=== PATIENT | male | born 1940 | race Caucasian/White ===

== ENCOUNTER → 2016-10-17 | Outpatient (CLI) | payer OTHER | END | disposition home or self-care (01) | LOC: PCVCCLINIC 11:51 | PROVIDERS: ATTEND Internal Medicine | DX: I25.10 Atherosclerotic heart disease of native coronary artery without angina pectoris (principal); I25.5 Ischemic cardiomyopathy; I35.0 Nonrheumatic aortic (valve) stenosis; I65.23 Occlusion and stenosis of bilateral carotid arteries; I10 Essential (primary) hypertension; E78.2 Mixed hyperlipidemia; E78.5 Hyperlipidemia, unspecified; Z79.82 Long term (current) use of aspirin; Z79.899 Other long term (current) drug therapy; Z95.1 Presence of aortocoronary bypass graft; Z87.891 Personal history of nicotine dependence | CPT/HCPCS: 85610; 93005; G0463 ==

== ENCOUNTER → 2016-10-17 | Outpatient (CLI) | payer OTHER | END | disposition home or self-care (01) | LOC: PCVCIMAG 10:11 | PROVIDERS: ATTEND Internal Medicine | DX: I65.23 Occlusion and stenosis of bilateral carotid arteries (principal); I25.10 Atherosclerotic heart disease of native coronary artery without angina pectoris; I35.0 Nonrheumatic aortic (valve) stenosis; I10 Essential (primary) hypertension; E78.5 Hyperlipidemia, unspecified | CPT/HCPCS: 80061; 93005; 93880; G0463 ==

== ENCOUNTER → 2016-10-18 | Outpatient (CLI) | payer OTHER | END | disposition home or self-care (01) | LOC: PCVCIMAG 16:02 | PROVIDERS: ATTEND Internal Medicine | DX: I65.23 Occlusion and stenosis of bilateral carotid arteries (principal); I25.10 Atherosclerotic heart disease of native coronary artery without angina pectoris; I25.5 Ischemic cardiomyopathy; I35.0 Nonrheumatic aortic (valve) stenosis; I10 Essential (primary) hypertension; E78.5 Hyperlipidemia, unspecified | CPT/HCPCS: 80061; 93005; 93306; G0463 ==

== ENCOUNTER → 2017-04-18 | Outpatient (CLI) | payer OTHER ==
--- NOTE | 2017-04-18 12:32 | PCVCIMAG ---
APPROVED REPORT Study performed: 04/18/2017 10:36:00 EXAM: Comprehensive 2D, Doppler, and color-flow Echocardiogram Patient Location: Echo lab Status: routine BSA: 2.35 HR: 75 bpmBP: 118/80 mmHg Rhythm: NSR Other Information Study Quality: Adequate Indications Aortic Valve Disease CAD Hypertension/HDD CABG, Hyperlipidemia 2D Dimensions LVEF(%): 43.89 (>50%) IVSd: 15.85 (7-11mm)LVOT Diam: 21.02 (18-24mm) LVDd: 35.01 mm PWd: 17.63 (7-11mm)Ascending Ao: 37.49 (22-36mm) LVDs: 27.62 (25-40mm) Left Atrium: 40.17 (27-40mm) Aortic Root: 32.07 mm LV Single Plane 4CH: 46.55 % LV Single Plane 2CH: 57.86 %Castro's LVEF: 52.21 % Volumes Left Atrial Volume (Systole) Single Plane 4CH: 55.72 mLSingle Plane 2CH: 39.47 mL LA ESV Index: 20.00 mL/m2 Aortic Valve AoV Peak Wallace.: 4.33 m/s AO Peak Gr.: 75.15 mmHgLVOT Max P.62 mmHg AO Mean Gr.: 45.80 mmHgLVOT Mean P.28 mmHg AO V2 Mean: 3.23 m/sLVOT Max V: 1.19 m/s AO V2 VTI: 95.68 cmLVOT Mean V: 0.85 m/s TOÑITO (VTI): 0.79 [id number] V1 VTI: 21.85 cm TOÑITO Vmax: 0.95 cm2 SV (LVOT): 75.77 mL Mitral Valve E/A Ratio: 0.0 MV Decel. Time: 274.70 ms MV E Max Wallace.: 0.53 m/s MV A Wallace.: 0.00 m/s TDI E/Lateral E': 6.63E/Medial E': 8.83 Medial E' Wallace.: 0.06 m/s Lateral E' Wallace.: 0.08 m/s Pulmonary Vein P Vein S: 0.50 m/sP Vein A: 0.26 m/s P Vein D: 0.34 m/sP Vein A Dur.: 69.2 msec P Vein S/D Ratio: 1.47 Left Ventricle The left ventricle is normal size. Hypokinesis of the mid distal septum and distal inferior wall. Mild concentric left ventricular hypertrophy. Left ventricular systolic function is mildly decreased. LVEF is 45-50%. Grade I - abnormal relaxation pattern. Right Ventricle The right ventricle is normal size. The right ventricular systolic function is normal. Atria The left atrium size is normal. The right atrium size is normal. Aortic Valve Aortic valve leaflets are heavily calcified. No aortic regurgitation is present. Calculated aortic valve area is 0.9 cm2 with maximum pressure gradient of 69 mmHg and mean pressure gradient of 44 mmHg. Mitral Valve The mitral valve is normal in structure. There is no mitral valve regurgitation noted. No evidence of mitral valve stenosis. Tricuspid Valve The tricuspid valve is normal in structure. There is no tricuspid valve regurgitation noted. Pulmonic Valve The pulmonary valve is normal in structure. There is no pulmonic valvular regurgitation. Great Vessels The aortic root is normal in size. IVC is normal in size and collapses with >50% inspiration Pericardium There is no pericardial effusion. <Conclusion> Left ventricular systolic function is mildly decreased. Hypokinesis of the mid distal septum and distal inferior wall. LVEF is 45-50%. Grade I diastolic dysfunction Aortic valve leaflets are heavily calcified. Calculated aortic valve area is 0.9 cm2 with maximum pressure gradient of 69 mmHg and mean pressure gradient of 44 mmHg. No aortic insufficiency The mitral valve is normal in structure. nNo mitral valve regurgitation noted. Pulmonary artery pressure could not be reliably ascertained There is no pericardial effusion.
== END | disposition home or self-care (01) ==
LOC: PCVCIMAG 10:23
PROVIDERS: ATTEND Internal Medicine
DX: I25.10 Atherosclerotic heart disease of native coronary artery without angina pectoris (principal); I25.5 Ischemic cardiomyopathy; I35.0 Nonrheumatic aortic (valve) stenosis; E78.5 Hyperlipidemia, unspecified; I10 Essential (primary) hypertension; I65.23 Occlusion and stenosis of bilateral carotid arteries; Z95.1 Presence of aortocoronary bypass graft; Z79.82 Long term (current) use of aspirin; Z79.899 Other long term (current) drug therapy; Z87.891 Personal history of nicotine dependence
CPT/HCPCS: 80061; 93005; 93306; G0463

== ENCOUNTER → 2017-10-20 | Outpatient (CLI) | payer OTHER | END | disposition home or self-care (01) | LOC: PCVCIMAG 10:30 | DX: I65.23 Occlusion and stenosis of bilateral carotid arteries (principal); I10 Essential (primary) hypertension; E78.5 Hyperlipidemia, unspecified; I25.10 Atherosclerotic heart disease of native coronary artery without angina pectoris; I25.5 Ischemic cardiomyopathy; I35.0 Nonrheumatic aortic (valve) stenosis; Z87.891 Personal history of nicotine dependence; Z79.82 Long term (current) use of aspirin; Z79.899 Other long term (current) drug therapy | CPT/HCPCS: 93005; 93880; G0463 ==

== ENCOUNTER → 2017-10-27 | Outpatient (CLI) | payer OTHER ==
[~2017-10-27] MED LIST: REGADENOSON 0.4 MG/5 ML DISP.SYRIN. IV
== END | disposition home or self-care (01) ==
LOC: PCVCIMAG 13:41
DX: I25.10 Atherosclerotic heart disease of native coronary artery without angina pectoris (principal); E78.5 Hyperlipidemia, unspecified; I10 Essential (primary) hypertension; Z87.891 Personal history of nicotine dependence; Z95.1 Presence of aortocoronary bypass graft
CPT/HCPCS: 78452; 93017; A9500; J2785

== ENCOUNTER → 2018-04-12 | Outpatient (CLI) | payer OTHER ==
--- NOTE | 2018-04-12 13:11 | PCVCIMAG ---
APPROVED REPORT Study performed: 04/12/2018 12:13:49 EXAM: Comprehensive 2D, Doppler, and color-flow Echocardiogram Patient Location: Echo lab Status: routine BSA: 2.35 HR: 710 bpmBP: 142/80 mmHg Rhythm: NSR Other Information Study Quality: Good Risk Factors: Cardiac Risk Factors: HTN, Hyperlipidemia Indications Aortic Valve Disease CAD Cardiomyopathy S/P CABG (2001) 2D Dimensions IVSd: 14.79 (7-11mm)LVOT Diam: 21.00 (18-24mm) LVDd: 42.78 mm PWd: 14.85 (7-11mm)Ascending Ao: 37.22 (22-36mm) LVDs: 26.99 (25-40mm) Left Atrium: 36.26 (27-40mm) Aortic Root: 31.10 mm LV Single Plane 4CH: 50.04 % LV Single Plane 2CH: 48.37 % Biplane EF: 48.6 % Volumes Left Atrial Volume (Systole) Single Plane 4CH: 52.91 mLSingle Plane 2CH: 45.77 mL LA ESV Index: 23.00 mL/m2 Aortic Valve AoV Peak Wallace.: 4.33 m/s AO Peak Gr.: 74.83 mmHgLVOT Max P.77 mmHg AO Mean Gr.: 49.62 mmHgLVOT Mean P.17 mmHg AO V2 Mean: 3.39 m/sLVOT Max V: 0.97 m/s AO V2 VTI: 110.37 cm TOÑITO (VTI): 0.69 [id number] V1 VTI: 24.36 cm TOÑITO Vmax: 0.70 cm2 Mitral Valve E/A Ratio: 0.6 MV Decel. Time: 316.51 ms MV E Max Wallace.: 0.67 m/s MV A Wallace.: 1.07 m/s MV PHT: 91.79 ms IVRT: 65.74 ms TDI E/Lateral E': 9.57E/Medial E': 11.17 Medial E' Wallace.: 0.06 m/s Lateral E' Wallace.: 0.07 m/s Pulmonary Valve PV Peak Wallace.: 1.07 m/sPV Peak Gr.: 4.56 mmHg Pulmonary Vein P Vein S: 0.86 m/sP Vein A: 0.30 m/s P Vein D: 0.36 m/sP Vein A Dur.: 124.6 msec P Vein S/D Ratio: 2.39 Tricuspid Valve TR Peak Wallace.: 2.19 m/s TR Peak Gr.: 19.25 mmHg Left Ventricle The left ventricle is normal size. Hypokinesis of the distal inferior wall. Moderate concentric left ventricular hypertrophy. Left ventricular systolic function is mildly decreased. LVEF is 50%. Grade I - abnormal relaxation pattern. Right Ventricle The right ventricle is normal size. The right ventricular systolic function is normal. Atria The left atrium size is normal. Right atrium is dilated. Aortic Valve Aortic valve is heavily calcified. Peak aortic valve velocity is 4.3 m/sec. The peak aortic gradient is 75 mmHg; mean gradient is 50 mmHg. The aortic valve area is 0.8 cm2. Severe aortic valve stenosis. No aortic regurgitation is present. There is no aortic valvular stenosis. Mitral Valve The mitral valve is normal in structure. Trace mitral regurgitation. No evidence of mitral valve stenosis. Tricuspid Valve The tricuspid valve is normal in structure. There is no tricuspid valve regurgitation noted. Unable to reliably ascertain the PA pressure. Pulmonic Valve The pulmonary valve is normal in structure. Trace pulmonic regurgitation. Great Vessels The aortic root is normal in size. IVC is not seen. Pericardium There is no pericardial effusion. <Conclusion> Left ventricular systolic function is mildly decreased. Hypokinesis of the distal inferior wall. LVEF is 50%. Mild diastolic dysfunction Aortic valve is heavily calcified. Peak aortic valve velocity is 4.3 m/sec. The peak aortic gradient is 75 mmHg; mean gradient is 50 mmHg. The aortic valve area is 0.8 cm2. Severe aortic valve stenosis. No aortic regurgitation is present. The mitral valve is normal in structure. Trace mitral regurgitation Pulmonary artery pressure could not be reliably ascertained. There is no pericardial effusion.
== END | disposition home or self-care (01) ==
LOC: PCVCIMAG 10:59
PROVIDERS: ATTEND Internal Medicine
DX: I35.0 Nonrheumatic aortic (valve) stenosis (principal); I25.10 Atherosclerotic heart disease of native coronary artery without angina pectoris; I25.5 Ischemic cardiomyopathy; I10 Essential (primary) hypertension; E78.5 Hyperlipidemia, unspecified; Z95.1 Presence of aortocoronary bypass graft
CPT/HCPCS: 93306

== ENCOUNTER → 2018-04-25 | Outpatient (CLI) | payer OTHER | END | disposition home or self-care (01) | LOC: PCVCCLINIC 10:54 | PROVIDERS: ATTEND Internal Medicine | DX: I25.10 Atherosclerotic heart disease of native coronary artery without angina pectoris (principal); E78.5 Hyperlipidemia, unspecified; I10 Essential (primary) hypertension; Z88.8 Allergy status to other drugs, medicaments and biological substances | CPT/HCPCS: 36415 ==

== ENCOUNTER → 2018-05-02 | Outpatient (CLI) | payer OTHER ==
[~2018-05-02] MED LIST changes: +BENZOCAINE ONE 20% MUCOSAL SPRAY.; +IOHEXOL 350 MG/ML 100 ML VIAL. ONE; +IOHEXOL 350 MG/ML 50 ML VIAL. ONE; +IV NORMAL SALINE 1000ML BAG 1,000 ML ONE; +LIDOCAINE 1% Multi-Dose 50 ML VIAL. ONE; +LIDOCAINE 1%/EPI 1:100,000 20 ML VIAL. ONE; +MIDAZOLAM HCL/PF 2 MG/2 ML VIAL. ONE; -REGADENOSON 0.4 MG/5 ML DISP.SYRIN. IV; +fentaNYL PF VIAL 100 MCG/2 ML VIAL ONE
--- NOTE | 2018-05-02 13:18 | PCVCIMAG ---
APPROVED REPORT Study performed: 05/02/2018 09:09:51 EXAM: Transesophageal Echocardiogram Patient Location: [facility] Room #: 1 Status: routine BSA: 2.35 HR: 65 bpmBP: 153/76 mmHg Rhythm: NSR Other Information Study Quality: Good Indications Aortic Valve Disease Echo Enhancing Agent Indication: Rule out Shunt Agent(s) / Amount(s) Used: Agitated Saline 10 cc Comments: Negative contrast study for shunt flow. 2D Dimensions Ascending Ao: 39.00 (22-36mm) Aortic Root: 26.00 mm Aortic Valve AoV Peak Wallace.: 4.40 m/s AO Peak Gr.: 77.49 mmHg AO Mean Gr.: 55.13 mmHg AO V2 Mean: 3.59 m/s AO V2 VTI: 118.00 cm Procedure After obtaining informed consent, patient underwent transesophageal echo in the [facility] [facility]. Type of Sedation : Conscious Sedation Sedation was administered by Gerda Evans RN. Sedation start time: 9:38 Case end Time: 9:54 Sedation was achieved intravenously with: Versed (3mg) Fentanyl (125mcg) Transesophageal probe was inserted and advanced into esophagus without difficulty by Jaron Ziegler MD. Echo enhancement indication: R/O Septal defect. Echo enhancement agent administered: Agitated Saline The KELLEE was performed without complications. Throughout the procedure, the blood pressure, pulse oximetry, cardiac rhythm, and rate were monitored. The patient tolerated the procedure without adverse effects. Recovery from conscious sedation was uneventful and vital signs were stable. Left Ventricle The left ventricle is normal size. There is normal LV segmental wall motion. There is normal left ventricular wall thickness. The left ventricular systolic function is normal. The left ventricular ejection fraction is within the normal range. This study is not technically sufficient to allow evaluation of the LV diastolic function. Right Ventricle The right ventricle is normal size. The right ventricular systolic function is normal. Atria The left atrium size is normal. No thrombus is visualized in the left atrium or appendage. No shunting by contrast bubble injection The right atrium size is normal. Aortic Valve Aortic valve is trileaflet, moderately calcified, severely stenotic Trace to mild aortic regurgitation. Severe aortic stenosis. Mean aortic valve gradient is 55 mmHg, peak aortic valve gradient is 77 mmHg. Mitral Valve The mitral valve is normal in structure. Mild to moderate mitral regurgitation. No evidence of mitral valve stenosis. Tricuspid Valve The tricuspid valve is normal in structure. Trace to mild tricuspid regurgitation. Pulmonic Valve The pulmonary valve is normal in structure. There is no pulmonic valvular regurgitation. Great Vessels Aortic root is normal in size. The ascending aorta is at upper limits of normal in size. IVC is not well visualized. Pericardium There is no pericardial effusion. There is no pleural effusion. <Conclusion> The left ventricular systolic function is normal. There is normal LV segmental wall motion. No thrombus is visualized in the left atrium or appendage. No shunting by contrast bubble injection Aortic valve is trileaflet, moderately calcified, severely stenotic. Mild insufficiency Severe aortic stenosis. Mean aortic valve gradient is 55 mmHg, peak aortic valve gradient is 77 mmHg. The mitral valve is normal in structure. Mild to moderate mitral regurgitation. There is no pericardial effusion.
--- NOTE | 2018-05-02 17:14 | PCVCINTER ---
APPROVED REPORT Study performed: 05/02/2018 13:20:47 Patient Details Patient Status: Out-Patient Room #: 1 The patient is a 77 year-old Male Event Personnel Karlie Rahman MD, Hardik Fitzgerald RT(R)(), Momo Camp RT(R), Ej Kulkarni RT(R)(), Chelsea Lorenz RN, Shimon Fung RN Risk Factors Arterial HypertensionDysplipidemia (Type: 1), Hypercholesterolemia, Last Creatanine 1.1Tobacco History (Former) Previous Procedures/Diagnoses Previous CABG, Previous CHFPrevious [place] Procedure Narrative The patient was brought electively to the Cardiac Catheterization Laboratory and was prepped and draped in a sterile manner. The right femoral was infiltrated with 1% Lidocaine subcutaneous anesthesia. A 6fr sheath was inserted into the right femoral artery. Coronary angiography was performed using coronary diagnostic catheters. The right coronary system was accessed and visualized with a JR4 catheter. The left coronary system was accessed and visualized with a JL4 catheter. The left ventricle was accessed and visualized with a angled pigtail catheter. Closure device was deployed with a 6 Fr Fish. Hemostasis was obtained with manual pressure following sheath removal without any complications. The patient tolerated the procedure well and there were no complications associated with the procedure. There was no hematoma. Coronary Angiography The patient's coronary anatomy is right dominant. [place] Artery Percent Stenosis Supravalvular aortography demonstrated a calcified and stenotic aortic valve. No aortic insufficiency. No aneurysmal dilatation of the ascending aorta. Diagnostic Cath Left MainNormal left main LADOcclusion of the LAD in its proximal segment. Normal left internal mammary to the midportion of the LAD Diagonal 1Occluded diagonal branch. Patent radial artery to the diagonal branch with excellent runoff into this moderate size vessel Both proximal and distal anastomotic sites were normal. The mammary also irrigated several small to moderate size diagonal branches. CircumflexOcclusion of the circumflex, proximally [id number] patent vein graft to a large bifurcating marginal branch. Both proximal and distal anastomotic sites were widely patent. Right CoronaryRight coronary dominant circulation. 40% proximal right coronary stenosis. 75% distal right coronary stenosis R PDAWidely patent and angiographically normal vein graft to the posterior descending branch. Both proximal and distal anastomotic sites were widely patent. Brisk runoff into a large posterior descending [id number]% proximal posterior lateral branch stenosis Left Ventriculography Left Ventriculography was not performed. Hemodynamics The aortic pressure is 125/46 mmHg with a mean of 72 mmHg. Conclusion 1. Severe multivessel coronary disease 2. Patent left internal mammary to the LAD 3. Patent radial artery to the diagonal branch 4. Patent vein graft to a large bifurcating marginal 6. Patent vein graft to the distal right coronary 7. Severe, calcific aortic stenosis Recommendations Valve Surgery
== END | disposition home or self-care (01) ==
LOC: PCVCINTER 08:38
PROVIDERS: ATTEND Internal Medicine
DX: I08.3 Combined rheumatic disorders of mitral, aortic and tricuspid valves (principal); I25.10 Atherosclerotic heart disease of native coronary artery without angina pectoris; I25.5 Ischemic cardiomyopathy; E78.5 Hyperlipidemia, unspecified; E78.00 Pure hypercholesterolemia, unspecified; I65.23 Occlusion and stenosis of bilateral carotid arteries; I10 Essential (primary) hypertension; Z87.891 Personal history of nicotine dependence; Z88.8 Allergy status to other drugs, medicaments and biological substances; Z79.82 Long term (current) use of aspirin; Z79.899 Other long term (current) drug therapy; Z95.1 Presence of aortocoronary bypass graft
CPT/HCPCS: 93312; 93325; 93459; C1751; C1760; C1769; C1894; J1644; J2250; J3010; J3490; J7030; Q9967

== ENCOUNTER → 2018-09-03 | Outpatient (CLI) | payer OTHER | END | disposition home or self-care (01) | LOC: PCVCCLINIC 11:31 | PROVIDERS: ATTEND Internal Medicine | DX: I25.10 Atherosclerotic heart disease of native coronary artery without angina pectoris (principal); I25.5 Ischemic cardiomyopathy; I35.0 Nonrheumatic aortic (valve) stenosis; I65.23 Occlusion and stenosis of bilateral carotid arteries; I10 Essential (primary) hypertension; E78.00 Pure hypercholesterolemia, unspecified; Z79.82 Long term (current) use of aspirin; Z95.3 Presence of xenogenic heart valve | CPT/HCPCS: 36415; 80061; 93005; G0463 ==

== ENCOUNTER → 2018-11-30 | Outpatient (CLI) | payer OTHER ==
--- NOTE | 2018-11-30 15:31 | PCVCIMAG ---
APPROVED REPORT Indications Stenosis Dizziness and Vertigo Doppler Spectral Velocity Analysis PSV / EDVPSV / EDV ECA (R) 91 / 9 cm/sECA (L) 94 / 5 cm/s dICA (R) 64 / 18 cm/sdICA (L) 72 / 22 cm/s [place] (R) 70 / 19 cm/smICA (L) 79 / 25 cm/s pICA (R) 62 / 13 cm/spICA (L) 95 / 29 cm/s Bulb (R) 52 / 14 cm/sBulb (L) 57 / 16 cm/s dCCA (R) 66 / 12 cm/sdCCA (L) 83 / 16 cm/s mCCA (R) 85 / 14 cm/smCCA (L) 99 / 17 cm/s Vert (R) 44 / 8 cm/sVert (L) 66 / 14 cm/s ICA/CCA 0.83ICA/CCA 0.96 Basic Measurements Blood Pressure: Pulses: Right Left RightLeft Brachial(Sitting) 150/[id number] Real Time B-Mode Imaging Vert. (R)AntegradeVert. (L)Antegrade Findings The right carotid bulb has moderate calcified plaque. The right proximal internal carotid artery shows <40% stenosis. The right common carotid artery shows no significant stenosis. The right external carotid artery shows no significant stenosis. The left carotid bulb has moderate calcified plaque. The left proximal internal carotid artery shows <40% stenosis. The left common carotid artery shows no significant stenosis. The left external carotid artery shows no significant stenosis. Conclusion 1. Right internal carotid artery stenosis (<40%) 2. Left internal carotid artery stenosis (<40%) 3. Antegrade vertebral
== END | disposition home or self-care (01) ==
LOC: PCVCIMAG 14:02
PROVIDERS: ATTEND Internal Medicine
DX: I65.23 Occlusion and stenosis of bilateral carotid arteries (principal); E78.5 Hyperlipidemia, unspecified
CPT/HCPCS: 93880

== ENCOUNTER → 2019-03-11 | Outpatient (CLI) | payer OTHER ==
--- NOTE | 2019-03-11 09:50 | PCVCIMAG ---
APPROVED REPORT Study performed: 03/11/2019 08:58:50 EXAM: Comprehensive 2D, Doppler, and color-flow Echocardiogram Patient Location: Echo lab Status: routine BSA: 2.13 HR: 72 bpmBP: 130/80 mmHg Rhythm: NSR Other Information Study Quality: Good Risk Factors: Cardiac Risk Factors: HTN, Hyperlipidemia Indications CAD Cardiomyopathy CABG, TAVR 2D Dimensions IVSd: 13.91 (7-11mm)LVOT Diam: 22.08 (18-24mm) LVDd: 41.67 mm PWd: 12.27 (7-11mm)Ascending Ao: 38.30 (22-36mm) LVDs: 27.79 (25-40mm) Left Atrium: 41.84 (27-40mm) Aortic Root: 30.57 mm LV Single Plane 4CH: 44.27 % LV Single Plane 2CH: 64.65 % Biplane EF: 55.6 % Volumes Left Atrial Volume (Systole) Single Plane 4CH: 63.74 mLSingle Plane 2CH: 75.83 mL LA ESV Index: 34.00 mL/m2 Aortic Valve AoV Peak Wallace.: 2.05 m/s AO Peak Gr.: 16.80 mmHgLVOT Max P.05 mmHg AO Mean Gr.: 10.41 mmHgLVOT Mean P.63 mmHg AO V2 Mean: 1.57 m/sLVOT Max V: 1.33 m/s AO V2 VTI: 33.65 cmLVOT Mean V: 0.89 m/s TOÑITO (VTI): 2.58 [id number] V1 VTI: 22.72 cm TOÑITO Vmax: 2.48 cm2 SV (LVOT): 86.94 mL Mitral Valve E/A Ratio: 0.7 MV Decel. Time: 252.94 ms MV E Max Wallace.: 0.73 m/s MV A Wallace.: 1.03 m/s TDI E/Lateral E': 12.17E/Medial E': 12.17 Medial E' Wallace.: 0.06 m/s Lateral E' Wallace.: 0.06 m/s Pulmonary Valve PV Peak Gr.: 4.05 mmHg Pulmonary Vein P Vein S: 1.24 m/sP Vein A: 0.51 m/s P Vein D: 0.56 m/sP Vein A Dur.: 138.4 msec P Vein S/D Ratio: 2.21 Tricuspid Valve TR Peak Wallace.: 2.68 m/s TR Peak Gr.: 28.83 mmHg Left Ventricle The left ventricle is normal size. Hypokinesis distal inferior wall. Borderline concentric left ventricular hypertrophy. Left ventricular systolic function is normal. The left ventricular ejection fraction is within the normal range. LVEF is 55-60%. Mild diastolic dysfunction is present (impaired relaxation pattern). Right Ventricle The right ventricle is normal size. The right ventricular systolic function is normal. Atria The left atrium size is normal. The right atrium size is normal. Aortic Valve s/p TAVR (Peak gradient 17mmHg. Mean gradient is 10mmHg). Normal functioning aortic bioprosthesis No aortic regurgitation is present. There is no aortic valvular stenosis. Mitral Valve The mitral valve is normal in structure. There is no mitral valve regurgitation noted. No evidence of mitral valve stenosis. Tricuspid Valve The tricuspid valve is normal in structure. There is no tricuspid valve regurgitation noted. Pulmonic Valve The pulmonary valve is normal in structure. There is no pulmonic valvular regurgitation. Great Vessels The aortic root is normal in size. The ascending aorta is mildly dilated (4.1cm). IVC is normal in size and collapses >50% with inspiration. Pericardium There is no pericardial effusion. <Conclusion> Left ventricular systolic function is normal. Hypokinesis distal inferior wall. LVEF is 55-60%. Mild diastolic dysfunction s/p TAVR (Peak gradient 17mmHg. Mean gradient is 10mmHg). Normal functioning aortic bioprosthesis No aortic regurgitation is present. The mitral valve is normal. No mitral valve regurgitation The ascending aorta is mildly dilated (4.1cm). There is no pericardial effusion.
== END | disposition home or self-care (01) ==
LOC: PCVCIMAG 08:51
PROVIDERS: ATTEND Internal Medicine
DX: I25.10 Atherosclerotic heart disease of native coronary artery without angina pectoris (principal); I25.5 Ischemic cardiomyopathy; Z95.1 Presence of aortocoronary bypass graft; Z95.3 Presence of xenogenic heart valve
CPT/HCPCS: 93306

== ENCOUNTER → 2019-03-12 | Outpatient (CLI) | payer OTHER | END | disposition home or self-care (01) | LOC: PCVCCLINIC 10:23 | PROVIDERS: ATTEND Internal Medicine | DX: E78.5 Hyperlipidemia, unspecified (principal); I25.10 Atherosclerotic heart disease of native coronary artery without angina pectoris; I10 Essential (primary) hypertension; Z88.8 Allergy status to other drugs, medicaments and biological substances | CPT/HCPCS: 36415; 80061 ==